=== PATIENT | female | born 1945 | race Caucasian/White ===

== ENCOUNTER → 2016-09-28 | Outpatient (CLI) | payer MEDICARE | LOC: LAB 09:46 | PROVIDERS: ATTEND Nurse Practitioner Family | DX: R41.3 Other amnesia (principal) | CPT/HCPCS: 36415; 82607 ==

== ENCOUNTER 2016-10-26 08:37 | Emergency (ER) | payer MEDICARE ==
[~2016-10-26] VITALS: Ht 167.6 cm; Wt 74.0 kg
[2016-10-26 10:27] LABS: ALBUMIN 3.9 g/dL (3.4-5.0); ANION GAP 11.4 MEQ/L (3-15); CALCULATED IONIZED CALCIUM 4.1 mg/dL (3.8-4.6); TOTAL PROTEIN 6.6 g/dL (6.4-8.5)
[2016-10-26 10:29] LABS: BASOPHILS % (AUTO) 0 % (0-2); EOSINOPHILS # (AUTO) 0.1 10^3uL; EOSINOPHILS % (AUTO) 3 % (0-4); LYMPHOCYTES # (AUTO) 1.9 X10^3; MEAN CORPUSCULAR HEMOGLOBIN 29.5 PG (26.0-34.0); MEAN CORPUSCULAR HGB CONC 33.6 g/dL (31.0-37.0); MEAN CORPUSCULAR VOLUME 88 FL (80-100); MEAN PLATELET VOLUME 9.5 FL (6.0-9.5); MONOCYTES # (AUTO) 0.3 X10^3; MONOCYTES % (AUTO) 6 % (3-11); NEUTROPHILS # (AUTO) 2.6 X10^3; NEUTROPHILS % (AUTO) 53 % (51-67); PLATELET COUNT 152 10^3uL (150-450); WHITE BLOOD COUNT 4.97 10^3uL (4.0-11.0)
[2016-10-26 12:23] VITALS: BP 126/55
== END 2016-10-26 11:50 | disposition home or self-care (01) ==
LOC: ED 08:39
DX: R42 Dizziness and giddiness (principal)
CPT/HCPCS: 36415; 80053; 85025; 99282

== ENCOUNTER → 2016-11-03 | Outpatient (CLI) | payer MEDICARE ==
--- NOTE | 2016-11-03 17:06 | Diagnostic Imaging Report ---
CLINICAL INDICATION: Patient with acute ataxia, double vision, and dizziness. COMPARISON: None. EXAM: Real-time carotid Doppler duplex imaging is performed bilaterally. Peak systolic velocity, ICA/CCA peak systolic ratio, spectral analysis, and vascular morphology are studied. FINDINGS: ARTERY VELOCITY Right Left CCA 0.90 m/s 1.08 m/s ICA 1.01 m/s 1.21 m/s ECA 0.80 m/s 1.09 m/s ICA/CCA 1.1 1.1 VERT.ART predominantly Antegrade Antegrade There is note of brief reversal of systolic flow involving the right vertebral artery. Limited evaluation of the right and left subclavian arteries show no significant elevated velocities or significant atherosclerotic stenosis. Otherwise, the bilateral carotid arteries show mild atherosclerotic disease which is less than 50% stenosis on grayscale imaging. The bilateral distal ICAs are tortuous. IMPRESSION: 1: There is mild bilateral carotid artery atherosclerotic disease with no grayscale or Doppler evidence of significant vascular stenosis. 2: There is nonspecific brief reversal of systolic flow involving the cervical right vertebral artery. There is no gross abnormality of the subclavian arteries to suggest stenosis on this exam. Dictated by: Dictated on workstation # [id number]
== END ==
LOC: RAD 13:58
PROVIDERS: ATTEND Family Medicine
DX: R27.8 Other lack of coordination (principal); H53.2 Diplopia; R42 Dizziness and giddiness; R29.2 Abnormal reflex
CPT/HCPCS: 93880

== ENCOUNTER → 2016-11-05 | Outpatient (CLI) | payer MEDICARE ==
--- NOTE | 2016-11-05 09:48 | Diagnostic Imaging Report ---
CLINICAL INDICATION: Patient with acute ataxia, double vision, episode of dizziness and normal deep tendon reflexes. EXAM: MRI of the brain performed without and with 15 cc of ProHance IV contrast. Sequences include axial DWI, ADC map, coronal gradient echo, axial T2, axial FLAIR, axial proton density, axial T1, axial T1 post IV contrast, coronal T1 post IV contrast. COMPARISON: None. FINDINGS: There is no evidence of acute cerebral infarct, intracranial hemorrhage, or gross mass effect. There are several focal and patchy areas of high T2 signal white matter changes involving both cerebral hemispheres and redd. There is no associated IV contrast enhancement. There is normal barragan-white matter distinction. The brain parenchymal volume appears appropriate for patient's age. There is no significant midline shift or herniation. The pituitary gland, sella, and suprasellar regions are unremarkable as visualized. The [place] vascular structures show no gross abnormality as visualized. There is no evidence of hydrocephalus. 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 The basal cisterns are unremarkable. The skull, extracranial soft tissue, and orbits are unremarkable. There is minimal mucosal thickening involving the ethmoid sinus. IMPRESSION: 1: There is no evidence of acute cerebral infarction, intracranial hemorrhage, hydrocephalus, or enhancing mass. 2: There is mild high T2 signal involving both cerebral hemispheres which likely represents chronic small vessel ischemic disease. 3: There is small amount of amorphous high T2 signal within the redd. This may be related to chronic ischemic changes. Sequelae from central pontine myelinolysis also may be considered. Clinical correlation would better evaluate. Dictated by: Dictated on workstation # [id number]
== END ==
LOC: RAD 07:05
PROVIDERS: ATTEND Family Medicine
DX: R27.8 Other lack of coordination (principal); H53.2 Diplopia; R42 Dizziness and giddiness; R29.2 Abnormal reflex; R93.0 Abnormal findings on diagnostic imaging of skull and head, not elsewhere classified
CPT/HCPCS: 70553; A9579

== ENCOUNTER → 2016-11-08 | Outpatient (CLI) | payer MEDICARE | LOC: RAD 09:44 | PROVIDERS: ATTEND Family Medicine | DX: Z53.9 Procedure and treatment not carried out, unspecified reason (principal) ==